=== PATIENT | male | born 1965 | race Caucasian/White ===

== ENCOUNTER 2024-04-23 09:02 | Day surgery (SDC) | payer BC ==
[2024-04-23] MEDS ORDERED: LACTATED RINGERS 1,000 ML BAG ONE (11:00)
[2024-04-23] MEDS ORDERED: PROPOFOL 10 MG/ML 20 ML VIAL IV ONE (11:28)
--- NOTE | 2024-05-17 06:57 | P.PCN ---
Date of Procedure: 04/23/24 Procedure(s) Performed: This is an addendum with her procedure that was performed on 04/23/2024. Procedure performed colonoscopy Procedure: The [employer] colonoscopy was inserted the rectum and gradually advanced into the cecum. .
== END 2024-04-23 12:17 | disposition home or self-care (01) ==
LOC: ORWHC2ENDO 09:02
PROVIDERS: ATTEND Internal Medicine Gastroenterology
DX: Z12.11 Encounter for screening for malignant neoplasm of colon (principal); I10 Essential (primary) hypertension; E78.5 Hyperlipidemia, unspecified; Z86.010 Personal history of colon polyps; Z79.899 Other long term (current) drug therapy
CPT/HCPCS: 45378